=== PATIENT | female | born 1990 | race African-American/Black ===

== ENCOUNTER 2024-03-27 22:38 | Emergency (ER) | payer SELFPAY ==
[2024-03-27 22:54] VITALS: BP 116/79; PULSE 94; RESP 18; TEMP 97.7; BMI 26.9
[2024-03-27] MEDS ORDERED: ACETAMINOPHEN 325 MG TABLET (FP) ONE (23:34)
[2024-03-27] MEDS: ACETAMINOPHEN 325 MG TABLET (FP) PO ONE (23:36)
[2024-03-28 01:27] LABS: BASO % 1.2 % (0-2.0); EOS % 1.5 % (0-4.5); HEMATOCRIT 37.8 % (32.4-45.2); HEMOGLOBIN 12.2 GM/dL (10.7-15.3); LYMPH % 41.6 % (8-40); MCH 25.4 pg (25.7-33.7); MCHC 32.3 g/dl (32.0-36.0); MEAN CELL VOLUME 78.5 fl (80-96); MEAN PLT VOLUME 6.8 fl (7.5-11.1); MONO % 7.1 % (3.8-10.2); NEUT % 48.6 % (42.8-82.8); PLATELET COUNT 537 10^3/uL (134-434); RBC 4.81 M/mm3 (3.60-5.2); RDW 15.9 % (11.6-15.6); WHITE BLOOD COUNT 5.5 K/mm3 (4.0-10.0)
[2024-03-28 02:18] LABS: CALCIUM 9.3 mg/dL (8.5-10.1)
[2024-03-28 02:19] LABS: BLOOD UREA NITROGEN 12.1 mg/dL (7-18)
[2024-03-28 02:22] LABS: CREATININE 0.8 mg/dL (0.55-1.3)
[2024-03-28 02:23] LABS: ALBUMIN 3.5 g/dl (3.4-5.0); POTASSIUM 4.2 mmol/L (3.5-5.1)
[2024-03-28 02:24] LABS: BILIRUBIN,TOTAL 0.2 mg/dL (0.2-1); TOT PROT 7.7 g/dl (6.4-8.2)
== END 2024-03-28 03:47 | disposition home or self-care (01) ==
LOC: JER 22:38
DX: M79.661 Pain in right lower leg (principal); M79.662 Pain in left lower leg; H57.11 Ocular pain, right eye
CPT/HCPCS: 36415; 80053; 85025; 99283-25